=== PATIENT | male | born 2000 | race Caucasian/White ===

== ENCOUNTER 2020-09-14 15:08 | Emergency (ER) | payer OTHER ==
[~2020-09-14] VITALS: Ht 160 cm; Wt 75.7 kg
[2020-09-14 15:43] VITALS: BP 124/70
--- NOTE | 2020-09-14 15:53 | NUR ---
TENT1
--- NOTE | 2020-09-14 15:56 | NUR ---
COVID RAPID, FLU SWABS DONE.
[2020-09-14] MEDS ORDERED: PSEU-250 PO (16:56)
[2020-09-14] MEDS ORDERED: IBUP-1842 PO (16:56)
[2020-09-14 18:50] VITALS: BP 124/70
--- NOTE | 2020-09-14 18:51 | NUR ---
Patient discharged with v/s stable. Written and verbal after care instructions given and explained. Patient alert, oriented and verbalized understanding of instructions. Ambulatory with by caregiver. All questions addressed prior to discharge. ID band removed. Patient advised to follow up with PMD. Rx of ibuprofen, pseudoephedrine given. Patient educated on indication of medication including possible reaction and side effects. Opportunity to ask questions provided and answered.
== END 2020-09-14 18:51 | disposition home or self-care (01) ==
LOC: MED 15:08
DX: J06.9 Acute upper respiratory infection, unspecified (principal); Z20.822 Contact with and (suspected) exposure to COVID-19
CPT/HCPCS: 71045; 87804; 99284

== ENCOUNTER 2021-06-21 02:42 | Inpatient (IN) | payer OTHER ==
[~2021-06-21] VITALS: Ht 160 cm; Wt 80.7 kg
[~2021-06-21 02:42] MED LIST: IBUP-1842 PO; PSEU-250 PO
[2021-06-21 02:50] VITALS: BP 99/69
--- NOTE | 2021-06-21 03:03 | NUR ---
21 Y/O M CAME TO ED WITH C/C OF VOMITING X3 (9PM, 2AM, 3AM), ABDOMINAL PAIN, TOOK PEPTOBISMOL AND DRANK MILK. PT AOX4, ABLE TO LET NEEDS KNOWN. PT AID AT BEDSIDE AT THIS TIME. HX: CEREBRAL PALSY NKA
[2021-06-21] MEDS ORDERED: ONDANSETRON 4 MG/2 ML VIAL IVP ONE (03:30)
[2021-06-21] MEDS ORDERED: MORPHINE SULFATE 4 MG/ML SYR IVP ONE (03:30)
[2021-06-21] MEDS ORDERED: NACL 0.9% 1,000 ML IV ONE ×3 (03:30→05:55)
--- NOTE | 2021-06-21 03:39 | NUR ---
seed laboratory assistant at bedside
--- NOTE | 2021-06-21 03:39 | NUR ---
Yobani almazan in [facility] - 06/21/21 at 0445 by OPAL LAB AT [facility] FOR DRAW
[2021-06-21 03:47] LABS: EOSINOPHILS # (AUTO) 5.6 K/uL (0-0.4); EOSINOPHILS % (AUTO) 47.7 % (0.0-4.0); HEMATOCRIT 47.8 % (36-52); HEMOGLOBIN 16.6 g/dL (12.0-18.0); LYMPHOCYTES % (AUTO) 17.1 % (20.5-51.1); MEAN CORPUSCULAR HEMOGLOBIN 33 pg (27-31); MEAN CORPUSCULAR HGB CONC 35 g/dL (33-37); MEAN CORPUSCULAR VOLUME 95.4 fL (80-94); MONOCYTES # (AUTO) 0.3 K/uL (0.8-1.0); MONOCYTES % (AUTO) 2.9 % (1.7-9.3); NEUTROPHILS # (AUTO) 3.8 K/uL (1.8-7.7); NEUTROPHILS % (AUTO) 32.3 % (42.2-75.2); PLATELET COUNT (AUTO) 119 K/uL (140-450); RED BLOOD CELL COUNT(AUTO) 5.01 MIL/uL (4.20-6.10); RED CELL DISTRIBUTION WIDTH 12.5 % (11.6-13.7); WHITE BLOOD COUNT (AUTO) 11.7 K/uL (4.8-10.8)
[2021-06-21 03:55] LABS: APPEARANCE,URINE CLEAR (CLEAR); BILIRUBIN,URINE NEGATIVE (NEGATIVE); BLOOD, URINE NEGATIVE (NEGATIVE); COLOR,URINE YELLOW (YELLOW); LEUKOCYTE ESTERASE ,URINE NEGATIVE (NEGATIVE); NITRITE, URINE NEGATIVE (NEGATIVE); UGLUCOSE NEGATIVE (NEGATIVE)
[2021-06-21] MEDS: NACL 0.9% 1,000 ML IV SCH ×3 (04:10→12:33)
[2021-06-21 04:14] LABS: ALBUMIN 4.1 g/dL (3.4-5.0); ANION GAP 18.1 (8-16); CARBON DIOXIDE 21.6 mmol/L (21-32); CREATININE 0.9 mg/dL (0.6-1.3); POTASSIUM 3.7 mmol/L (3.5-5.1); TOTAL BILIRUBIN 1.7 mg/dL (0.0-1.0)
--- NOTE | 2021-06-21 04:45 | NUR ---
PT OBSERVED LAYING IN BED. CHEST RISE AND FALL PRESENT. VSS. WILL CONTINUE TO MONITOR.
--- NOTE | 2021-06-21 05:49 | NUR ---
PT TAKEN TO CT WITH PROGRAM ELIGIBILITY SPECIAL[facility]
[2021-06-21] MEDS ORDERED: POTASSIUM CHLORIDE 10 MEQ TABER PO PRN (06:10)
[2021-06-21] MEDS ORDERED: MAG SULF 2000 MG/WATER PREMIX 50 ML IV PRN (06:10)
[2021-06-21] MEDS ORDERED: MAGNESIUM OXIDE 400 MG TAB PO PRN (06:10)
[2021-06-21] MEDS ORDERED: ACETAMINOPHEN 325 MG TAB PO PRN (06:10)
[2021-06-21] MEDS ORDERED: OLAN20TA1 PO (06:25)
[2021-06-21] MEDS ORDERED: TOP100 PO (06:25)
[2021-06-21] MEDS ORDERED: THE (06:25)
[2021-06-21] MEDS ORDERED: FLUV100T31 PO (06:25)
[2021-06-21] MEDS ORDERED: SERT-514 PO (06:25)
[2021-06-21] MEDS ORDERED: DIVA500T1 PO (06:25)
--- NOTE | 2021-06-21 07:15 | NUR ---
REPORT GIVEN TO CARLOS GREEN
--- NOTE | 2021-06-21 07:25 | NUR ---
RECEIVED REPORT FROM CARMELITA GREEN. ASSUMED CARE AT THIS TIME.
[2021-06-21] MEDS: ONDANSETRON 4 MG/2 ML VIAL IVP PRN (08:50)
--- NOTE | 2021-06-21 08:51 | NUR ---
PT C/O NAUSEA AND IS DRY HEAVING. PT MEDICATED PER PRN ORDER
--- NOTE | 2021-06-21 08:55 | NUR ---
Patient will be admitted to care of DR. HIGGINS. Admited to Med/Surg. Will go to room 111B. Belongings list completed. BEDSIDE REPORT GIVEN TO MEAGHAN.
--- NOTE | 2021-06-21 09:05 | NUR ---
GOT RECEIVED REPORT FROM ER NURSE, PATIENT ALERT, HIS LENS INSERTER AT BED SIDE.[id number]
[2021-06-21 12:00] VITALS: BP 104/70
[2021-06-21] MEDS: DOCUSATE SODIUM 100 MG GELCAP PO SCH (12:30)
[2021-06-21 16:00] VITALS: BP 120/77
[2021-06-21] MEDS: HYDROcodone/APAP 5/325 MG 1 TAB TAB PO PRN (17:25)
--- NOTE | 2021-06-21 20:37 | NUR ---
PT'S MOTHER HIT THE CALL LIGHT . PER HER SHE STAYING HERE BECAUSE WAITING WHEN THE SURGERY WILL BE DONE , PER HER SHE TALKED DR. HIGGINS TODAY AND DISCUSSED ABOUT THE SURGERY . I REVIEWED THE DOCTOR ORDERS - NO SURGERY CONSULT ORDER YET - WILL REMIND DR. HIGGINS ABOUT THIS MATTER . PT IS STILL NPO , FEBRILE .
[2021-06-22] VITALS: BP 121/65
--- NOTE | 2021-06-22 02:06 | NUR ---
CONTINUING HICCUPS - O2 SAT 96 % , TEMP RE CHECK 97.7 F ,HR 102 ,BP 121/ 67 - CLOSELY WATCH , NO COMPLAIN OF PAIN , C/O NAUSEA - MEDICATED .
--- NOTE | 2021-06-22 02:19 | NUR ---
ANSWER THE CALL LIGHT - PER PT. HE WANTS PEPTO BISMOL , HE SAID HE HAS HEARTBURN - WILL INFORM DR. ANDREA . Addendum: 06/22/21 at 0457 by Park Jon RN DR Nimco ANDREA NO RESPONSE ABOUT PEPTO BISMOL
[2021-06-22] MEDS: ONDANSETRON 4 MG/2 ML VIAL IVP PRN (03:26)
[2021-06-22] MEDS: NACL 0.9% 1,000 ML IV SCH ×4 (04:10→22:10)
--- NOTE | 2021-06-22 04:50 | NUR ---
C/O ABDL. PAIN - BP 124/76 , WA 112 , O2 SAT 95 % - WILL MEDICATE . CALL LIGHT WITHIN REACH .
[2021-06-22] MEDS: MORPHINE SULFATE 2 MG/ML SYR IVP PRN ×3 (04:52→14:23)
--- NOTE | 2021-06-22 06:00 | NUR ---
ROUNDS , PT'S SAID THE ABL. PAIN IS BIT LESSEN NOW . HE SAID HE HAS NO BM FOR 2 DAYS - WILL ENDORSE .
[2021-06-22 06:52] LABS: HEMATOCRIT 46.1 % (36-52); HEMOGLOBIN 15.7 g/dL (12.0-18.0); LYMPHOCYTES # (AUTO) 0.6 K/uL (2.0-11.5); LYMPHOCYTES % (AUTO) 4.9 % (20.5-51.1); MEAN CORPUSCULAR HEMOGLOBIN 33 pg (27-31); MEAN CORPUSCULAR HGB CONC 34 g/dL (33-37); MEAN CORPUSCULAR VOLUME 96.6 fL (80-94); MONOCYTES # (AUTO) 1.7 K/uL (0.8-1.0); MONOCYTES % (AUTO) 12.9 % (1.7-9.3); NEUTROPHILS # (AUTO) 10.8 K/uL (1.8-7.7); NEUTROPHILS % (AUTO) 82.2 % (42.2-75.2); PLATELET COUNT (AUTO) 120 K/uL (140-450); RED BLOOD CELL COUNT(AUTO) 4.77 MIL/uL (4.20-6.10); RED CELL DISTRIBUTION WIDTH 13.2 % (11.6-13.7); WHITE BLOOD COUNT (AUTO) 13.1 K/uL (4.8-10.8)
[2021-06-22 07:00] LABS: ALBUMIN 2.9 g/dL (3.4-5.0); CARBON DIOXIDE 22.1 mmol/L (21-32); CREATININE 0.7 mg/dL (0.6-1.3); MAGNESIUM 1.9 mg/dL (1.8-2.4); POTASSIUM 3.1 mmol/L (3.5-5.1)
--- NOTE | 2021-06-22 07:23 | NUR ---
ENDORSED - PT - STABLE .
[2021-06-22 08:00] VITALS: BP 125/72
--- NOTE | 2021-06-22 08:09 | NUR ---
RECEIVED PATIENT, AOX3-4, RESIPRATIONS EVEN AND UNLABORED ON ROOM AIR. VITAL SIGNS STABLE. PATIENT REPORTS MILD PAIN BUT TOLERABLE IN HIS ABDOMEN. IV FLUIDS INFUSING. POTASSIUM REPLACEMENT GIVEN, PATIENT ABLE TO SWALLOW WITHOUT DIFFICULTY. REPOSITIONED PATIENT ON SIDE. FAMILY MEMBERS AT BEDSIDE UPDATED ON PLAN OF CARE.
[2021-06-22] MEDS: DOCUSATE SODIUM 100 MG GELCAP PO SCH (08:41)
--- NOTE | 2021-06-22 10:02 | NUR ---
PATIENT'S FATHER ASSISTED PATIENT TO RESTROOM. HE IS UNSTEADY. UNABLE TO HAVE BOWEL MOVEMENT BUT PASSED GAS. URINATING FREELY. REPORTS PAIN IN ABDOMEN, PRN MORPHINE GIVEN. IV FLUIDS INFUSING. WILL CONTINUE TO MONITOR.
--- NOTE | 2021-06-22 11:08 | NUR ---
PATIENT HAS BEEN SCREENED AND CATEGORIZED LOW NUTRITION RISK. PATIENT WILL BE SEEN WITHIN 7 DAYS OF ADMISSION. 06/27/[address]
--- NOTE | 2021-06-22 11:15 | NUR ---
DR BOWDEN AT BEDSIDE, PLAN FOR SURGERY TODAY AT 4PM. PATIENT KEPT NPO. OBTAINED CONSENT FROM MOTHER WHO IS HIS CONSERVATOR.
[2021-06-22] MEDS: KCL 20 MEQ/WATER INJ PREMIX 200 ML IV PRN (12:38)
[2021-06-22] MEDS ORDERED: LIDOCAINE/EPI MPF 1%1:200000 30 ML VIAL INJ ONE (13:15)
[2021-06-22] MEDS ORDERED: BUPIVACAINE-MPF 0.25% 30 ML VIAL INJ ONE (13:16)
--- NOTE | 2021-06-22 13:53 | NUR ---
PATIENT IS RESTING COMFORTABLY IN BED, MOTHER AND GRANDMOTHER AT BEDSIDE. DENIES PAIN AT THIS TIME. ABLE TO VOID IN URINAL 100 CC DARK YELLOW URINE. CHECKED TEMPERATURE 97.7 TEMPORAL. IV POTASSIUM REPLACEMENT INFUSING.
--- NOTE | 2021-06-22 14:38 | NUR ---
PATIENT REPORTS PAIN IN ABDOMEN AND IV SITE FROM POTASSIUM REPLACEMENT. PRN MORPHINE GIVEN. FAMILY AT BEDSIDE.
--- NOTE | 2021-06-22 15:00 | NUR ---
20 MEQ POTASSIUM INFUSED PER DR. BOWDEN'S ORDER. PATIENT LEFT FOR OR BEFORE SECOND BAG COULD BE HUNG. TOTAL POTASSIUM REPLACEMENT TODAY 60 MEQ
--- NOTE | 2021-06-22 15:20 | NUR ---
PATIENT LEFT FOR OR.
[2021-06-22] MEDS ORDERED: ceFAZolin 1,000 MG VIAL ONE (15:46)
[2021-06-22] MEDS ORDERED: SEVOFLURANE 250 ML BTL INH ONE (15:50)
[2021-06-22] MEDS ORDERED: MIDAZOLAM 2 MG/2 ML VIAL ONE (15:53)
[2021-06-22] MEDS ORDERED: HYDROmorphone PFS 2 MG/ML SYR ONE (15:53)
[2021-06-22] MEDS ORDERED: PROPOFOL 200 MG/20 ML VIAL IV ONE (15:54)
[2021-06-22] MEDS ORDERED: DEXAMETHASONE 4 MG/ML VIAL ONE (16:15)
[2021-06-22] MEDS ORDERED: ePHEDrine 50 MG/ML VIAL ONE (16:15)
[2021-06-22] MEDS ORDERED: ONDANSETRON 4 MG/2 ML VIAL ONE (16:15)
[2021-06-22] MEDS ORDERED: ROCURONIUM 50 MG/5 ML VIAL IV ONE (17:47)
[2021-06-22] MEDS ORDERED: HYDROmorphone 1 MG/ML AMP IVP PRN (18:05)
[2021-06-22] MEDS ORDERED: ONDANSETRON 4 MG/2 ML VIAL IVP PRN (18:05)
[2021-06-22] MEDS: LACTATED RINGERS 1,000 ML IV SCH (18:05)
--- NOTE | 2021-06-22 19:10 | NUR ---
RECEIVED BEDSIDE REPORT FROM DAY SHIFT RN FOR CONTINUITY OF CARE. PT IS IN RECOVERY. PT GOT LAP JANES. WAITING FOR PT TO COME BACK.
--- NOTE | 2021-06-22 19:15 | NUR ---
PT IS BACK FROM OR. PT IS STABLE.
[2021-06-22] MEDS: HYDROcodone/APAP 5/325 MG 1 TAB TAB PO PRN (19:58)
[2021-06-23] VITALS: BP 130/79
--- NOTE | 2021-06-23 01:00 | NUR ---
PT COMPLAINED OF ABD PAIN. MORPHINE WAS GIVEN PER MD ORDER. NO OTHER COMPLAINS FROM THE PT. WILL CONTINUE TO MONITOR
[2021-06-23] MEDS: LACTATED RINGERS 1,000 ML IV SCH ×2 (02:25→10:13)
[2021-06-23] MEDS: HYDROcodone/APAP 5/325 MG 1 TAB TAB PO PRN ×3 (02:45→14:30)
--- NOTE | 2021-06-23 03:40 | NUR ---
PT IS SLEEPING IN BED COMFORTABLY. PT IS NOT IN ANY DISTRESS. BREATHING EVEN AND UNLABORED. CALL LIGHT WITHIN REACH. ALL SAFETY MEASURES TAKEN. WILL CONTINUE TO MONITOR THE PT.
[2021-06-23] MEDS: NACL 0.9% 1,000 ML IV SCH ×3 (04:50→18:15)
--- NOTE | 2021-06-23 05:09 | NUR ---
PT WAS CLEANED AND CHANGED. NO COMPLAINS FROM THE PT. ALL SAFETY MEASURES TAKEN. WILL CONTINUE TO MONITOR THE PT.
[2021-06-23] MEDS: MORPHINE SULFATE 2 MG/ML SYR IVP PRN (05:33)
--- NOTE | 2021-06-23 07:23 | NUR ---
ENDORSED PT TO DAY SHIFT RN FOR CONTINUITY OF CARE. PT IS STABLE.
--- NOTE | 2021-06-23 07:23 | NUR ---
ENDORSED PT FROM NIGHTSHIFT NURSE FOR CONTINUITY OF CARE, DISCUSSED PLAN OF CARE. PT VISUALLY ASSESSED AND STABLE. CURRENTLY AWAKE AND ALERT, A/OX4. BREATHING EVEN, REGULAR, AND UNLABORED, ON 3L NASAL CANNULA. PT ON BEDREST, CONTINENT OF THE BOWEL, WITH COX CATHETER PATENT AND HANGING TO GRAVITY. SKIN IS WARM, DRY, DERMABOND ON UMBILICUS HAD VERY LITTLE BLOODY DRAINAGE, 3X DERMABONDS ON ABDOMEN DRY AND INTACT. IV IS CLEAN, DRY, PATENT, RUNNING NS AT 150ML/HR. PT DENIES PAIN AT THIS TIME.
[2021-06-23 07:34] LABS: HEMATOCRIT 40.1 % (36-52); HEMOGLOBIN 13.8 g/dL (12.0-18.0); LYMPHOCYTES # (AUTO) 0.7 K/uL (2.0-11.5); LYMPHOCYTES % (AUTO) 6.3 % (20.5-51.1); MEAN CORPUSCULAR HEMOGLOBIN 33 pg (27-31); MEAN CORPUSCULAR HGB CONC 34 g/dL (33-37); MEAN CORPUSCULAR VOLUME 97.2 fL (80-94); MONOCYTES # (AUTO) 1.3 K/uL (0.8-1.0); MONOCYTES % (AUTO) 12.7 % (1.7-9.3); NEUTROPHILS # (AUTO) 8.6 K/uL (1.8-7.7); PLATELET COUNT (AUTO) 108 K/uL (140-450); RED BLOOD CELL COUNT(AUTO) 4.13 MIL/uL (4.20-6.10); RED CELL DISTRIBUTION WIDTH 12.8 % (11.6-13.7); WHITE BLOOD COUNT (AUTO) 10.6 K/uL (4.8-10.8)
[2021-06-23 07:38] LABS: ALBUMIN 2.7 g/dL (3.4-5.0); ANION GAP 11.2 (8-16); CARBON DIOXIDE 23.3 mmol/L (21-32); CREATININE 0.6 mg/dL (0.6-1.3); POTASSIUM 3.5 mmol/L (3.5-5.1); TOTAL BILIRUBIN 0.7 mg/dL (0.0-1.0)
[2021-06-23 08:00] VITALS: BP 138/84
[2021-06-23] MEDS: DOCUSATE SODIUM 100 MG GELCAP PO SCH (08:39)
--- NOTE | 2021-06-23 09:35 | NUR ---
PT COMPLAINED OF PAIN 8/10 IN HIS ABDOMEN. PRN PAIN MEDICATION GIVEN. FAMILY AT BEDSIDE, PT REQUESTED TO AMBULATE TO BATHROOM TO ATTEMPT BM, AND RELIEVE ABDOMINAL PAIN.. PT WAS ABLE TO AMBULATE WITH 2 PERSON ASSISTANCE.
--- NOTE | 2021-06-23 10:35 | NUR ---
PT VISUALLY ASSESSED. PT STABLE, HR STILL TACHY IN THE 110'S. PAIN REASSESSMENT PERFORMED, PT CURRENTLY SLEEPING, FATHER AND GRANDMOTHER AT THE BEDSIDE. DENIES PAIN AT THIS TIME.
[2021-06-23 12:00] VITALS: BP 139/84
--- NOTE | 2021-06-23 12:45 | NUR ---
PT VISUALLY ASSESSED. PT STABLE, CURRENTLY AWAKE AND ALERT, AND DENIES PAIN AT THIS TIME. INCISIONS WERE CLEAN DRY AND INTACT, WHILE INCISION ON UMBILICUS NO LONGER HAS SANGUINEOUS DRAINAGE, AND HAS DRIED UP. V/S WNL, HOWEVER HR IS STILL HIGH AT 114. WILL CONTINUE TO MONITOR.
--- NOTE | 2021-06-23 13:00 | NUR ---
DC PLANNING PATIENT IS A 21 YRS OLD MALE ADMITTED ON 06/21/2021 TO [facility]/ED FROM [facility] IN [facility](ROOM AND BOARD). PATIENT WAS ADMITTED FOR GALL STONE PANCREATITIS;WITH MILD PELVIS INFLAMMATION. PATIENT HAS A HX OF CEREBRAL PALSY. PATIENT LIVES IN [facility] BOARD FOR ABOUT A YEAR WITH [employer]IA [employer] [facility] AIDE. PATIENT IS CONSERVED AND HIS MOTHER TERESA COTO IS HIS CONSERVATOR (MOTHER HAS LEGAL DOCUMENTS AND MUST PROVIDE TO PLACE ON PATIENT'S CHART. ELMA LITTLE IS PATIENT'S FATHER. SW MET WITH PATIENT AT BEDSIDE TO DISCUSS AND GATHER HIS COLLATERAL INFORMATION PATIENT WAS AWAKE AND ALERT ABLE TO PROVIDE HIS OWN INFORMATION DURING VISIT WITH PATIENT HIS MATERNAL GRANDMOTHER ONEYDA ARRIVED STATING THAT PATIENT'S MOTHER WILL BE COMING LATER TO SEE PATIENT, PATIENT CONTINUE PROVIDING HIS INFORMATION AND STATED THAT HE IS BEEN LIVING IN THE ROOM AND BOARD FOR ABOUT A YEAR. PATIENT STATED THAT HE LIVES WITH OTHER PEOPLE IN THE HOME AND HAS A COUNSELOR (ARIS) AND (JAVIER) THE HOSPITAL AIDE TANIA. HE ALSO STATED THAT HE HAS FAMILY SUPPORT FROM HIS MATERNAL GRANDMOTHER ONEYDA SITTING AT HIS SIDE, MOTHER TERESA WHO IS ALSO HIS CONSERVATOR AND EMERGENCY AND MEDICAL DECISION MAKER AND CONSERVATOR. WELL HIS FATHER ELMA LITTLE. PATIENT STATED THAT HE HAS NO ISSUES GETTING OR TAKING HIS MEDICATIONS, AND THAT HE HAS A WALKER AND A WHEELCHAIR HIS ONLY DME. PATIENT ALSO REPORTED TO GURPREET THAT AFTER HE IS DISCHARGE HE IS NOT GOING TO BE RETURNING BACK TO THE ROOM AND BOARD INSTEAD HE IS GOING TO BE BACK HOME WITH HIS MOTHER TERESA. GURPREET CONFIRMED INFORMATION WITH PATIENT'S GRANDMOTHER AND SHE DID AGREED AND STATED THAT SHE JUST FINISH TALKING TO HER ON THE PHONE IN HER WAY TO THE HOSPITAL AND SHE IS IN AGREEMENT WITH HIS DISCHARGE PLAN. SHE REASSURE THAT PATIENT WILL BE DISCHARGING TO EITHER HIS FATHER OR MOTHER AND HE WILL BE STAYING BACK AT HIS MOTHER DESTINEY HOME AFTER HE IS DC. GURPREET DISCUSSED WITH PATIENT THE IMPORTANCE OF HAVING A FOLLOW UP APPOINTMENT AFTER HIS DC AND HE AGREED. SW WILL FOLLOW UP NEEDED.
--- NOTE | 2021-06-23 14:30 | NUR ---
PT COMPLAINED OF PAIN 6/10 IN ABDOMEN. PRN PAIN MED GIVEN, BP WNL. PT STABLE AND READJUSTED PER REQUEST.
[2021-06-23 16:00] VITALS: BP 147/83
--- NOTE | 2021-06-23 16:02 | NUR ---
DC PLANNIN YRS OLD MALE PATIENT WAS ADMITTED FROM [facility] ([facility]) WITH A DX OF GALL STONE PANCREATITIS. PATIENT HAS A HX OF CEREBRAL PALSY. CT ABD/PELVIS SHOWED MILD INFLAMMATION , US SHOWED CHOLELITHIASIS. ADMINISTERED IVF, IV ABX ROCEPHIN AND PAIN MEDS. DR BOWDEN PERFORMED LAP JANES, TOLERATED WELL. DC PLAN TO GO HOME WHEN STABLE CM TO FOLLOW. Addendum: 06/25/21 at 1419 by Freida Lemus CM DC PLANNING: PATIENT ON POD#3, S/P LAP JANES WITH INTRAOPERATIVE CHOLANGIOGRAM. PATIENTS O2 3-5 LITERS, RECEIVING HHN'S, ABG'S DONE WITH PO2 OF 57.9. CT OF ABD/PELVIS DONE TODAY SHOWS ACUTE PANCREATITIS, POSSIBLE COLITIS, PLEURAL EFFUSION AND POSSIBLE EARLY LLL PNA WITH BILATERAL LL ATELECTASIS. CT ANGIO NEGATIVE FOR PE, STUDIES DONE BECAUSE OF SOB. BNP 220, REMAINS ON ZOSYN AND IVF'S, ZOFRAN IV PRN AND BOWEL REGIMEN. FOLLOWED BY PULMONOLOGY AND SURGERY. CM WILL FOLLOW.
--- NOTE | 2021-06-23 17:00 | NUR ---
PT IS AWAKE AND ALERT. A&OX4. ON 1L O2 NC WITH BREATHING UNLABORED. TAKEN OFF NC WITH OXYGEN AND PLACED ON RA. ON RA THE PT DESATED TO 88%. PLACED BACK ON 1L O2 NC. O2 SAT INCREASED TO 91%. PT IS STABLE. DENIES PAIN.
--- NOTE | 2021-06-23 19:29 | NUR ---
ENDORSED TO NIGHTSHIFT NURSE FOR CONTINUITY OF CARE. DISCUSSED PLAN OF CARE. PT STABLE.
[2021-06-23 20:00] VITALS: BP 146/80
[2021-06-24] VITALS: BP 138/84
[2021-06-24] MEDS: NACL 0.9% 1,000 ML IV SCH ×4 (00:13→20:58)
[2021-06-24] MEDS: MORPHINE SULFATE 2 MG/ML SYR IVP PRN ×2 (00:25→08:32)
[2021-06-24 04:00] VITALS: BP 137/77
[2021-06-24 07:02] LABS: HEMATOCRIT 36.5 % (36-52); HEMOGLOBIN 12.6 g/dL (12.0-18.0); LYMPHOCYTES # (AUTO) 0.9 K/uL (2.0-11.5); LYMPHOCYTES % (AUTO) 9.6 % (20.5-51.1); MEAN CORPUSCULAR HEMOGLOBIN 33 pg (27-31); MEAN CORPUSCULAR HGB CONC 35 g/dL (33-37); MEAN CORPUSCULAR VOLUME 95.9 fL (80-94); MONOCYTES % (AUTO) 10.4 % (1.7-9.3); NEUTROPHILS # (AUTO) 7.4 K/uL (1.8-7.7); PLATELET COUNT (AUTO) 114 K/uL (140-450); RED BLOOD CELL COUNT(AUTO) 3.81 MIL/uL (4.20-6.10); RED CELL DISTRIBUTION WIDTH 12.6 % (11.6-13.7); WHITE BLOOD COUNT (AUTO) 9.2 K/uL (4.8-10.8)
[2021-06-24 07:21] LABS: ALBUMIN 2.4 g/dL (3.4-5.0); ANION GAP 12.5 (8-16); CARBON DIOXIDE 21.8 mmol/L (21-32); CREATININE 0.5 mg/dL (0.6-1.3); MAGNESIUM 1.9 mg/dL (1.8-2.4); POTASSIUM 3.3 mmol/L (3.5-5.1); TOTAL BILIRUBIN 0.8 mg/dL (0.0-1.0)
--- NOTE | 2021-06-24 07:25 | NUR ---
PATIENT WAS SLEEPING WELL AFTER PAIN MEDICATION AND SLEPT WELL. IV SITE ON LEFT FOREARM INTACT AND PATENT, IV FLUID NORMAL SALINE INTACT AND PATENT, RUNNING AT 150ML/HR. ENDORSED TO DAY SHIFT NURSE FOR CONTINUITY OF PATIENT CARE.
[2021-06-24 08:00] VITALS: BP 141/91
[2021-06-24] MEDS: DOCUSATE SODIUM 100 MG GELCAP PO SCH (08:33)
[2021-06-24 12:00] VITALS: BP 147/95
[2021-06-24] MEDS: POLYETHYLENE GLYCOL 17 GM/PKT PO SCH (14:14)
[2021-06-24 16:00] VITALS: BP 146/86
[2021-06-24] MEDS: HYDROcodone/APAP 5/325 MG 1 TAB TAB PO PRN (17:18)
--- NOTE | 2021-06-24 19:25 | NUR ---
RECEIVED ENDORSEMENT FROM NORMA EUBANKS FOR CONTINUITY OF CARE. PATIENT IS AWAKE AND STABLE. A&OX3. PATIENT IS VERBAL. ON 2L VIA NC WITH NO APPARENT S/SX OF ACUTE DISTRESS. RESPIRATIONS EVEN AND UNLABORED. PATIENT'S SKIN IS INTACT. PATIENT'S IV SITE TO THE LFA 20G IS PATENT/INTACT WITH NS INFUSING AT 150 ML/HR. PLAN OF CARE AND WHITE COMMUNICATION BOARD UPDATED. ALL SAFETY MEASURES IN PLACE. BED IN LOW/LOCKED POSITION. CALL LIGHT WITHIN REACH. WILL CONTINUE TO MONITOR.
[2021-06-24] MEDS ORDERED: PIPERACILLIN/TAZOBACTAM 3.375 GM in DEXTROSE 5% 50 ML IV ONE (19:50)
[2021-06-24 20:00] VITALS: BP 135/71
--- NOTE | 2021-06-24 20:00 | NUR ---
REVIEWED PLAN OF CARE WITH SARAHY TRAN LVN. SINCERE
[2021-06-24] MEDS ORDERED: ALBUTEROL SULFATE/IPRATROPIU 3 ML SOL IH ONE (20:05)
--- NOTE | 2021-06-24 20:55 | NUR ---
SPOKE WITH JESSICA TRUCK DRIVING INSTRUCTOR. PER JESSICA, IV SITE MUST BE ESTABLISHED CLOSER TO AC. ENDORSED TO WARD THAT XRAY TEAM IS STILL AT BEDSIDE. WILL ESTABLISH IV LINE SOON TEAM LEAVES BEDSIDE.
--- NOTE | 2021-06-24 21:15 | NUR ---
CHANGED PATIENT'S IVF BAG. TOLERATED WELL. DENIES PAIN. RESPIRATIONS EVEN AND UNLABORED WITH NO APPARENT S/SX OF ACUTE DISTRESS. DISTRICT REPRESENTATIVE AT BEDSIDE. ALL SAFETY MEASURES IN PLACE. CALL LIGHT WITHIN REACH. WILL CONTINUE TO MONITOR.
--- NOTE | 2021-06-24 22:06 | NUR ---
CALLED AND GAVE PATIENT'S ABG RESULTS TO DR. DONNELLY; INFORMED DR. DONNELLY THAT PATIENT WAS ON 3 L/MIN NASAL CANNULA BEFORE ABG WAS TAKEN; INFORMED DR. DONNELLY THAT PATIENT WAS PLACED ON 5 L/MIN NASAL CANNULA WITH BUBBLE HUMIDIFIER POST ABG RESULTS; DR. ANDRZEJ DUCKWORTH'flavio.
[2021-06-24] MEDS: PIPERACILLIN/TAZOBACTAM 3.375 GM in DEXTROSE 5% 50 ML IV SCH (22:58)
--- NOTE | 2021-06-24 23:15 | NUR ---
PATIENT REQUESTED TO BE IN HIGH-FOWLERS POSITION. DENIES PAIN. RESPIRATIONS EVEN AND UNLABORED WITH NO APPARENT S/SX OF ACUTE DISTRESS. WHITE COMMUNICATION BOARD UPDATED. ALL SAFETY MEASURES IN PLACE. CALL LIGHT WITHIN REACH. WILL CONTINUE TO MONITOR.
[2021-06-25] MEDS: HYDROcodone/APAP 5/325 MG 1 TAB TAB PO PRN ×3 (01:05→21:34)
--- NOTE | 2021-06-25 01:10 | NUR ---
ANSWERED CALL LIGHT. PT C/O ABD PAIN 07/16. MEDICATED PER PRN. TOLERATED WELL. RESPIRATIONS EVEN AND UNLABORED WITH NO APPARENT S/SX OF ACUTE DISTRESS. WHITE COMMUNICATION BOARD UPDATED. ALL SAFETY MEASURES IN PLACE. CALL LIGHT WITHIN REACH. WILL CONTINUE TO MONITOR.
[2021-06-25] MEDS: ALBUTEROL SULFATE/IPRATROPIU 3 ML SOL IH SCH ×4 (01:26→19:16)
--- NOTE | 2021-06-25 03:10 | NUR ---
ADMINISTRATED IVF BAG. TOLERATED WELL. PATIENT IS STABLE AND ASLEEP. CHEST IS RISING AND FALLING EVENLY. RESPIRATIONS EVEN AND UNLABORED WITH NO APPARENT S/SX OF ACUTE DISTRESS. WHITE COMMUNICATION BOARD UPDATED. ALL SAFETY MEASURES IN PLACE. CALL LIGHT WITHIN REACH. WILL CONTINUE TO MONITOR.
[2021-06-25] MEDS: NACL 0.9% 1,000 ML IV SCH ×3 (03:55→17:34)
[2021-06-25 04:00] VITALS: BP 126/72
[2021-06-25] MEDS: PIPERACILLIN/TAZOBACTAM 3.375 GM in DEXTROSE 5% 50 ML IV SCH ×3 (05:06→18:10)
--- NOTE | 2021-06-25 05:10 | NUR ---
PER PATIENT REQUEST, HOB ELEVATED TO HIGH FOWLERS. DENIES PAIN. RESPIRATIONS EVEN AND UNLABORED WITH NO APPARENT S/SX OF ACUTE DISTRESS. ALL NEEDS MET. ALL SAFETY MEASURES IN PLACE. CALL LIGHT WITHIN REACH. WILL CONTINUE TO MONITOR.
[2021-06-25] MEDS ORDERED: PIPERACILLIN/TAZOBACTAM 3.375 GM VIAL IV ONE (05:17)
--- NOTE | 2021-06-25 06:32 | NUR ---
CALLED WATCHGUARD DEPARTMENT AND ENDORSED TO GEETHA WATCHGUARD THAT IV LINE FOR IV CONTRAST ESTABLISHED.
[2021-06-25 07:09] LABS: BASOPHILS % (AUTO) 0.2 % (0.0-2.0); HEMATOCRIT 36.9 % (36-52); HEMOGLOBIN 12.7 g/dL (12.0-18.0); LYMPHOCYTES # (AUTO) 1.1 K/uL (2.0-11.5); LYMPHOCYTES % (AUTO) 12.2 % (20.5-51.1); MEAN CORPUSCULAR HEMOGLOBIN 33 pg (27-31); MEAN CORPUSCULAR HGB CONC 34 g/dL (33-37); MEAN CORPUSCULAR VOLUME 95.6 fL (80-94); MONOCYTES # (AUTO) 0.9 K/uL (0.8-1.0); MONOCYTES % (AUTO) 9.9 % (1.7-9.3); NEUTROPHILS # (AUTO) 7.2 K/uL (1.8-7.7); NEUTROPHILS % (AUTO) 77.7 % (42.2-75.2); PLATELET COUNT (AUTO) 121 K/uL (140-450); RED BLOOD CELL COUNT(AUTO) 3.87 MIL/uL (4.20-6.10); RED CELL DISTRIBUTION WIDTH 12.7 % (11.6-13.7); WHITE BLOOD COUNT (AUTO) 9.3 K/uL (4.8-10.8)
[2021-06-25 07:11] LABS: ALBUMIN 2.3 g/dL (3.4-5.0); ANION GAP 11.1 (8-16); CREATININE 0.5 mg/dL (0.6-1.3); MAGNESIUM 2.1 mg/dL (1.8-2.4); POTASSIUM 3.1 mmol/L (3.5-5.1); TOTAL BILIRUBIN 0.9 mg/dL (0.0-1.0)
--- NOTE | 2021-06-25 07:15 | NUR ---
ENDORSED PATIENT TO SHEILA PERRY FOR CONTINUITY OF CARE. PATIENT IS STABLE.
--- NOTE | 2021-06-25 07:16 | NUR ---
RECEIVED REPORT FROM TOUR ESCORT NURSE FOR CONTINUITY OF CARE. PATIENT IS IN BED SLEEPING AT THIS TIME. A&OX3. PATIENT IS VERBAL, ABLE TO MAKE NEEDS KNOWN, ABLE TO FOLLOW COMMANDS. ON 5L VIA NC WITH NO APPARENT S/SX OF ACUTE DISTRESS. RESPIRATIONS EVEN AND UNLABORED. PT HAS HX OF CEREBRAL PALSY WELL DEV. DELAY. PATIENT'S SKIN IS WARM, DRY, AND INTACT. PATIENT HAS IV TO THE LFA 20G IS PATENT/INTACT WITH NS INFUSING AT 150 ML/HR. CALL LIGHT WITHIN REACH. ALL SAFETY MEASURES IN PLACE. BED IN LOW/LOCKED POSITION.WILL CONTINUE TO MONITOR.
[2021-06-25 08:00] VITALS: BP 123/66
[2021-06-25] MEDS ORDERED: KCL 20 MEQ/WATER INJ PREMIX 200 ML IV ONE (08:37)
[2021-06-25] MEDS ORDERED: FUROSEMIDE 40 MG/4 ML VIAL IVP SCH (08:38)
[2021-06-25] MEDS: ENOXAPARIN 40 MG/0.4 ML SYR SUBQ SCH (09:15)
[2021-06-25] MEDS: DOCUSATE SODIUM 100 MG GELCAP PO SCH (09:15)
[2021-06-25] MEDS: POLYETHYLENE GLYCOL 17 GM/PKT PO SCH (09:15)
--- NOTE | 2021-06-25 09:15 | NUR ---
ADMINISTERED ALL SCHEDULED MEDICATIONS. EDUCATED PT REGARDING MEDS ADMINISTERED. PT VERBALIZED UNDERSTANDING. WILL CONTINUE TO MONITOR.
--- NOTE | 2021-06-25 12:19 | NUR ---
ASSISTED WITH CHANGING AND REPOSITIONING PT. PT HAD LARGE BOWEL MOVEMENT. WILL CONTINUE TO MONITOR.
--- NOTE | 2021-06-25 13:15 | NUR ---
SATURATION 97% ON HUMIDIFIED SUPPLEMENTAL OXYGEN AT 4 LPM VIA NC POST HHN THERAPY TITRATED FIO2 TO 3 LPM VICKY/SHEILA NOTIFIED
--- NOTE | 2021-06-25 13:25 | NUR ---
TOLERATED INCENTIVE SPIROMETRY (IS) THERAPY WITHOUT COMPLICATIONS NOTED ENCOURAGED PATIENT TO USE IS EVERY 1-2 HOURS WHILE AWAKE GRANDMOTHER AT BEDSIDE EDUCATION PROVIDED TO PATIENT; GRANDMOTHER TO ASSIST PATIENT WITH IS THERAPY DUE TO THE DECREASE IN UPPER EXTREMITY MOBILITY
--- NOTE | 2021-06-25 15:23 | NUR ---
DID ROUNDS ON PT. PT IN BED RESTING AT THIS TIME. FAMILY AT BEDSIDE. WILL CONTINUE TO MONITOR.
[2021-06-25 16:00] VITALS: BP 126/72
--- NOTE | 2021-06-25 17:34 | NUR ---
PT MOTHER AT BEDSIDE, STATES PT ACCIDENTALLY PULLED OUT IV ON L HAND. IV CATHETER INTACT. PT HAS ANOTHER IV ACCESS TO L UPPER ARM. WILL CONTINUE TO MONITOR.
[2021-06-25] MEDS ORDERED: ALBUTEROL SULFATE/IPRATROPIU 3 ML SOL IH PRN (17:40)
--- NOTE | 2021-06-25 18:02 | NUR ---
CHANGED AND REPOSITIONED PT. PT HAD A LARGE BOWEL MOVEMENT. WILL CONTINUE TO MONITOR.
--- NOTE | 2021-06-25 19:06 | NUR ---
ENDORSED PT TO BRANCH OFFICER NURSE FOR CONTINUITY OF CARE. PT IS STABLE.
--- NOTE | 2021-06-25 19:07 | NUR ---
RECEIVED PATIENT IN BED AWAKE WITH MOTHER AT BEDSIDE. PATIENT IS VERBAL BUT RELUCTANT TO TELL HIS NEEDS FOR PAIN MANAGEMENT BECAUSE OF FEAR FOR ADDICTION. NURSING EDUCATED THAT THE MEDICATION MANAGEMENT IS MODERATE ENOUGH TO CONTROL THE PAIN AND WE WILL GIVE APPROPRIATELY. PATIENT WAS KEPT CLEAN AND DRY AFTER ANOTHER LARGE BOWEL MOVEMENT. NASAL CANULA WAS ON AND ENFORCED WITH TAPE TO ENSURE PATIENT FROM PULLING IT OUT. RESIDENT WAS BREATHING UNLABORED AND EVEN. SIDE RAILS UP X 3 FOR SAFETY. PATIENT CAN ADJUST MODERATELY BUT NEEDS ASSISTANCE. CALL LIGHT WITHIN REACH FOR ASSISTANCE AND NEEDS. [email or web address]
--- NOTE | 2021-06-25 19:08 | NUR ---
Patient's Plan of Care was discussed and reviewed with DEAF TEACHER: KISHA. CALL LIGHT WITHIN REACH. WILL CONTINUE TO MONITOR.
[2021-06-25 20:00] VITALS: BP 138/80
--- NOTE | 2021-06-25 21:35 | NUR ---
PATIENT WAS GIVEN A PAIN PRN FOR MODERATED PAIN TO ABDOMINAL AREA. SURGICAL SITES WERE CLOSED BUT NOTED WITH DRIED SANGUINOUS. TENDER TO TOUCH. NOT WARM. NURSING GAVE MEDICATION AND WILL REASSESS IN ONE HOUR OF EFFECTIVENESS. [email or web address]
--- NOTE | 2021-06-25 22:35 | NUR ---
PATIENT IN BED ASLEEP. NO NOTED FACIAL GRIMACE OR GRUNTING. IV LINE CLEAN AND INTACT. NASAL CANULA ON WITH AIR AT 3 LITERS. BREATHING WITHOUT DISTRESS. [email or web address]
[2021-06-26] MEDS: PIPERACILLIN/TAZOBACTAM 3.375 GM in DEXTROSE 5% 50 ML IV SCH ×5 (00:35→23:53)
[2021-06-26] MEDS: ALBUTEROL SULFATE/IPRATROPIU 3 ML SOL IH SCH ×4 (01:23→18:52)
[2021-06-26] MEDS: MORPHINE SULFATE 2 MG/ML SYR IVP PRN ×2 (01:27→20:48)
--- NOTE | 2021-06-26 01:29 | NUR ---
PATIENT WAS CHANGED WITH ENROLLED AGENT AND INVESTIGATOR INTERNAL AFFAIRS BECAUSE OF URINE. IV NOTED CAME OUT NEW IV WAS STARTED WITH ONE ATTEMPT TO LEFT HAND WITH A 22 LINK. PATIENT TOLERATED IT WELL. SHEEP FARMER RAILS UP X 3 FOR SAFETY. CALL LIGHT IN REACH. KEPT PATIENT CLEAN AND DRY. OXYGEN NOTED ON AND IN PLACE. [email or web address]
[2021-06-26] MEDS: NACL 0.9% 1,000 ML IV SCH ×2 (02:26→06:39)
[2021-06-26 04:00] VITALS: BP 146/92
--- NOTE | 2021-06-26 05:32 | NUR ---
PATIENT HAS HAD TWO BLOODY NOSE. CALLED RT TO ASSIST. COOL COMPRESS WAS APPLIED TO THE BRIDGE OF HIS NOSE TO STOP THE BLEEDING. PATIENT STATES HE IS IN PAIN FOR HIS STOMACH. NURSING WILL GIVE MEDICATION AND DISTRACT FOR PAIN MANAGEMENT. PRN WAS GIVEN PAIN/DISCOMFORT. RT SWITCH PATIENT FROM NASAL CANNULA TO MASK AT THIS TIME. CALL LIGHT WITHIN REACH. [email or web address]
--- NOTE | 2021-06-26 05:40 | NUR ---
DUE TO BLOODY NOSE, SWITCHED PT TO A MASK AT 5L FOR PT COMFORT. NASAL CANNULA IS AT BEDSIDE.
[2021-06-26 07:03] LABS: HEMATOCRIT 37.6 % (36-52); LYMPHOCYTES # (AUTO) 1.4 K/uL (2.0-11.5); LYMPHOCYTES % (AUTO) 13.9 % (20.5-51.1); MEAN CORPUSCULAR HEMOGLOBIN 33 pg (27-31); MEAN CORPUSCULAR HGB CONC 35 g/dL (33-37); MEAN CORPUSCULAR VOLUME 94.9 fL (80-94); MONOCYTES # (AUTO) 1.1 K/uL (0.8-1.0); MONOCYTES % (AUTO) 11.2 % (1.7-9.3); NEUTROPHILS # (AUTO) 7.3 K/uL (1.8-7.7); NEUTROPHILS % (AUTO) 74.9 % (42.2-75.2); PLATELET COUNT (AUTO) 138 K/uL (140-450); RED BLOOD CELL COUNT(AUTO) 3.96 MIL/uL (4.20-6.10); RED CELL DISTRIBUTION WIDTH 12.9 % (11.6-13.7); WHITE BLOOD COUNT (AUTO) 9.7 K/uL (4.8-10.8)
[2021-06-26 07:17] LABS: ALBUMIN 2.3 g/dL (3.4-5.0); ANION GAP 14.4 (8-16); CARBON DIOXIDE 24.6 mmol/L (21-32); CREATININE 0.4 mg/dL (0.6-1.3); MAGNESIUM 1.9 mg/dL (1.8-2.4)
--- NOTE | 2021-06-26 07:22 | NUR ---
ENDORSED TO MEAGHAN GREEN FOR CONTINUITY OF CARE, PATIENT IS STABLE. [email or web address]
--- NOTE | 2021-06-26 07:34 | NUR ---
PT IS RESTING COMFORTABLE IN BED, GOT REPORT FROM THE NIGHT NURSE.[email or web address]
[2021-06-26] MEDS: DOCUSATE SODIUM 100 MG GELCAP PO SCH (08:57)
[2021-06-26] MEDS: POLYETHYLENE GLYCOL 17 GM/PKT PO SCH (08:58)
[2021-06-26] MEDS: ENOXAPARIN 40 MG/0.4 ML SYR SUBQ SCH (09:00)
--- NOTE | 2021-06-26 09:00 | NUR ---
PT CURRENTLY ON 3LNC AND SAT 96% NO. NO DISCOMFORT, CLEAR UPPER LOBES AND DIMINISHED ON THE LOWER LOBES. INSTRUCTED PT ON INCENTIVE SPIROMETRY AND HAD HIM DEMONSTRATE IT BACK TO ME. HIS BEST WAS 850 AT THIS TIME
[2021-06-26 09:58] VITALS: BP 148/88
[2021-06-26] MEDS: KCL 20 MEQ/WATER INJ PREMIX 200 ML IV PRN (11:38)
[2021-06-26] MEDS: HYDROcodone/APAP 5/325 MG 1 TAB TAB PO PRN (11:50)
--- NOTE | 2021-06-26 12:01 | NUR ---
06/26/21 RD INITIAL ASSESSMENT COMPLETED PLEASE REFER TO NUTRITION ASSESSMENT UNDER CARE ACTIVITY FOR ESTIMATED NUTRITIONAL NEEDS. RD RECOMMENDATIONS: 1. CONTINUE CARDIAC DIET TOLERATED. 2. IF PT HAS LOW PO INTAKE, CONSIDER ADDING ENSURE BID. 3. RD WILL F/U 3-5 DAYS; MODERATE RISK OLGA FIGUEROA, RD
--- NOTE | 2021-06-26 12:26 | NUR ---
IV INFILTRATED ON THE LEFT ARM, STARTED NEW IV LINE ON THE RIGHT FORARM WITH 22G, MOTHER AT BEDSIDE,[id number]
--- NOTE | 2021-06-26 13:41 | NUR ---
SATURATION 95% ON SUPPLEMENTAL OXYGEN AT 5 LPM VIA ADULT SIMPLE MASK POST HHN THERAPY CHANGED OXYGEN DEVICE TO A NASAL CANNULA AT 3 LPM WITH HUMIDIFIER MEAGHAN/NORMA NOTIFIED
--- NOTE | 2021-06-26 19:40 | NUR ---
OPENING NOTES: Received report from outgoing nurse. Pt resting in bed, on O2 @3L, nO SIGNS OF RESP DISTRESS NOTED, NOTED iv LINE @RH with 22G, Saline Lock. Noted no fluids at this time as per outgoing nurse.
--- NOTE | 2021-06-26 21:00 | NUR ---
ROUNDS: Pt c/o pain of 7-8/10. Gave 2mg Morphine IVP as per MD order. Well tolerated, no ASE noted. Will cont to monitor.
[2021-06-27] MEDS: ALBUTEROL SULFATE/IPRATROPIU 3 ML SOL IH SCH ×4 (00:53→18:46)
[2021-06-27] MEDS: HYDROcodone/APAP 5/325 MG 1 TAB TAB PO PRN ×2 (01:14→15:09)
[2021-06-27 04:55] VITALS: BP 146/81
[2021-06-27] MEDS: PIPERACILLIN/TAZOBACTAM 3.375 GM in DEXTROSE 5% 50 ML IV SCH ×3 (05:54→18:29)
--- NOTE | 2021-06-27 07:34 | NUR ---
got report from the night nurse, pt awake and mother at bedside.[email or web address]
--- NOTE | 2021-06-27 07:42 | NUR ---
END OF SHIFT REPORT TO INCOMING NURSE. PT ASLEEP IN BED. MOTHER AT BED SIDE. ALL DUE MEDS GIVEN, WELL TOLERATED, NO ASE. NO S/SX OF RESP DIST, PAIN OR DISCOMFORT. ALL COMFORT AND SAFETY MEASURES IN PLACE, BED IN LOW POSITION, LOCKED, CALL LIGHT WITHIN REACH. CONTINUITY OF CARE ENDORSED TO INCOMING RN.
[2021-06-27 08:00] VITALS: BP 111/79
[2021-06-27] MEDS: ENOXAPARIN 40 MG/0.4 ML SYR SUBQ SCH (09:00)
--- NOTE | 2021-06-27 09:00 | NUR ---
MICHELLE KOOTENAI HEALTHYARI C\O PLT IS 130.[email or web address]
[2021-06-27] MEDS: POLYETHYLENE GLYCOL 17 GM/PKT PO SCH (09:04)
[2021-06-27] MEDS: DOCUSATE SODIUM 100 MG GELCAP PO SCH (09:05)
[2021-06-27 13:42] LABS: BASOPHILS % (AUTO) 0.1 % (0.0-2.0); HEMATOCRIT 38.1 % (36-52); HEMOGLOBIN 13.2 g/dL (12.0-18.0); LYMPHOCYTES # (AUTO) 1.2 K/uL (2.0-11.5); LYMPHOCYTES % (AUTO) 16.8 % (20.5-51.1); MEAN CORPUSCULAR HEMOGLOBIN 33 pg (27-31); MEAN CORPUSCULAR HGB CONC 35 g/dL (33-37); MEAN CORPUSCULAR VOLUME 95.6 fL (80-94); MONOCYTES # (AUTO) 0.9 K/uL (0.8-1.0); NEUTROPHILS # (AUTO) 5.1 K/uL (1.8-7.7); NEUTROPHILS % (AUTO) 70.1 % (42.2-75.2); PLATELET COUNT (AUTO) 130 K/uL (140-450); RED BLOOD CELL COUNT(AUTO) 3.99 MIL/uL (4.20-6.10); RED CELL DISTRIBUTION WIDTH 12.9 % (11.6-13.7); WHITE BLOOD COUNT (AUTO) 7.3 K/uL (4.8-10.8)
[2021-06-27 14:03] LABS: ALBUMIN 2.4 g/dL (3.4-5.0); ANION GAP 11.1 (8-16); CARBON DIOXIDE 29.4 mmol/L (21-32); CREATININE 0.5 mg/dL (0.6-1.3); POTASSIUM 3.5 mmol/L (3.5-5.1); TOTAL BILIRUBIN 1.1 mg/dL (0.0-1.0)
--- NOTE | 2021-06-27 19:00 | NUR ---
PT ON 3L NASAL CANNULA SATURATION IS 98%. EQUAL CHEST RISE AND CLEAR BREATH SOUNDS. DIMINISHED ON THE BASES. PT WAS RESTING COMFORTABLY.
[2021-06-27 20:00] VITALS: BP 118/76
--- NOTE | 2021-06-27 20:25 | NUR ---
FULLY WET DIAPER . WILL CLEAN UP , O2 SAT 96 % , NO COMPLAIN MADE AT THIS TIME , CALL LIGHT WITHIN REACH . WILL CONT. TO MONITOR .
--- NOTE | 2021-06-27 22:24 | NUR ---
SLEEPING , O2 SAT 96 % - ON O2 SAT . MONITORING , CALL LIGHT WITHIN REACH .WILL CONT. TO MONITOR .
[2021-06-28] MEDS: PIPERACILLIN/TAZOBACTAM 3.375 GM in DEXTROSE 5% 50 ML IV SCH ×5 (00:45→23:25)
[2021-06-28] MEDS: ALBUTEROL SULFATE/IPRATROPIU 3 ML SOL IH SCH ×5 (00:57→23:25)
--- NOTE | 2021-06-28 01:00 | NUR ---
AWAKE - NO COMPLAIN MADE , CALL LIGHT WITHIN REACH .
[2021-06-28 04:00] VITALS: BP 113/70
--- NOTE | 2021-06-28 04:00 | NUR ---
ROUNDS , NO S/SX OF ACUTE DISTRESS NOTED . CALL LIGHT WITHIN REACH .
--- NOTE | 2021-06-28 06:00 | NUR ---
ROUNDS , AWAKEABLE , NO S/SX OF ACUTE DISTRESS NOTED , CALL LIGHT WITHIN REACH ,.
--- NOTE | 2021-06-28 07:30 | NUR ---
RECEIVED BEDSIDE REPORT FROM GOLD MINER BLASTING NURSE FOR CONTINUITY OF CARE. PT IS AWAKE AND ALERT. A&OX3. ON 2L O2 NC WITH BREATHING UNLABORED. BEDBOUND. INCONTINENT OF THE BOWEL AND BLADDER. SKIN IS WARM AND DRY. 4 SURGICAL INCISIONS WITH DANIELLA KELLY. IV IS IN THE RIGHT HAND 22 GAUGE TKO. PT IS STABLE. PLAN OF CARE DISCUSSED.
--- NOTE | 2021-06-28 07:40 | NUR ---
ENDORSED - PT - STABLE .
[2021-06-28 08:00] VITALS: BP 120/68
--- NOTE | 2021-06-28 09:30 | NUR ---
PT VOIDED AND HAD A BM IN DIAPER. PT WAS CHANGED AND NEW DIAPER PLACED. PT WAS ALSO GIVEN BED BATH. TOLERATED MOVEMENT WELL AND ASSISTED. ON 2L O2 NC WITH BREATHING UNLABORED. ATTEMPTED TO TAKE OFF NC AND PLACE ON RA. ON RA HE DESATED TO 88%. PLACED BACK ON 2L O2 NC AND O2 SAT WENT BACK UP TO 92%. ENCOURAGED INCENTIVE SPIROMETER USE EVERY HOUR AND PT VERBALIZED UNDERSTANDING.
[2021-06-28] MEDS: DOCUSATE SODIUM 100 MG GELCAP PO SCH (09:40)
[2021-06-28] MEDS: POLYETHYLENE GLYCOL 17 GM/PKT PO SCH (09:40)
[2021-06-28] MEDS: ENOXAPARIN 40 MG/0.4 ML SYR SUBQ SCH (09:42)
--- NOTE | 2021-06-28 11:30 | NUR ---
PT IS SLEEPING. CHEST RISE AND FALL SYMMETRICAL. NO DISTRESS NOTED AT THIS TIME. IV IS PATENT AND INFUSING TKO. WILL CONTINUE TO MONITOR.
--- NOTE | 2021-06-28 12:43 | NUR ---
WOUND CARE EVALUATION NOTES: REASON FOR EVALUATION: ABDOMINAL SURGICAL WOUND. WOUND ASSESSMENT COMPLETED ON THIS 21 Y/O MALE ADMITTED TO [facility] FOR [place] PANCREATITIS. PATIENT IS FROM HOME. PAST MEDICAL HISTORY INCLUDES CEREBRAL PALSY. ALL ABOVE INFORMATION WAS OBTAINED FROM THE ADMISSION H&P. LABS ARE WBC 7.3, H/H 13.2/38.1, GLUCOSE 105, ALBUMIN 2.4. PATIENT IS AAOX3, VERBAL, BEDBOUND, REQUIRES ASSISTANCE FOR TRANSFERS. ORAL MUCOSAL MEMBRANES MOIST. REQUIRES ASSISTANCE WITH TURNING. PLAN OF CARE AND PRESSURE PREVENTATIVE MEASURES DISCUSSED WITH PATIENT AND PRIMARY RN. PATIENT VERBALIZED UNDERSTANDING. COMORBIDITIES RELATED TO FURTHER SKIN BREAKDOWN SUCH IMPAIRED OR DECREASED MOBILITY, AND LOW ALBUMIN LEVEL. INTEGUMENTARY: - S/P LAP JANES ON 06/22/21. 4 ABDOMINAL SURGICAL WOUNDS WITH DERMABOND GLUE, NO DRAINAGE. PERIWOUND INTACT. RECOMMENDATIONS: - CLEANSE SURGICAL SITES WITH NS, PAT DRY, AND LEAVE DANIELLA DAILY AND PRN IF SOILED. - TURN AND REPOSITION PATIENT Q2H TO LEFT AND RIGHT SIDE TO OFFLOAD SACRALCOCCYX. - ASSESS AND MONITOR SKIN CONDITION DURING POSITION CHANGE. PLEASE PAY ATTENTION TO SACRALCOCCYX AND HEELS. - KEEP SKIN DRY AND CLEAN AT ALL TIMES. - RD CONSULT RECOMMENDATIONS DISCUSSED WITH PRIMARY RN. WILL FOLLOW-UP PATIENT Q7-10 DAYS AND PRN. PLEASE CONTACT WOUND CARE NURSE FOR ANY CONCERNS AND CHANGES IN WOUND CONDITION.
--- NOTE | 2021-06-28 13:10 | NUR ---
ROUNDED ON PT. HE IS STILL ASLEEP. PT RESTING COMFORTABLY. NO DISTRESS NOTED. VISITORS NO LONGER AT BEDSIDE. PT IS STABLE.
--- NOTE | 2021-06-28 14:09 | NUR ---
RECEIVED ORDERS FROM DR. MURPHY TO RENEW THE NORCO AND MORPHINE ORDER.
--- NOTE | 2021-06-28 14:19 | NUR ---
DC PLANNING: JESSICA SPOKE WITH THE PATIENT AND HIS MOTHER AT BEDSIDE. THE PATIENT HAS BEEN AT [facility] FOR A YEAR BUT PRIOR TO THAT LIVED AT HOME WITH HIS FAMILY. HE IS ABLE TO AMBULATE USING A FWW AND HAS OTHER DME AT HOME OF A WC, AND SHOWER CHAIR. THE PATIENTS MOTHER IS HIS CONSERVATOR, TERESA ARNETT, CELL NUMBER [phone]. HE WILL [place] [address], [id number]. HE WILL LIVE WITH HIS MOTHER, STEP-FATHER, GRANDMOTHER AND SISTER. HE WILL GO BACK TO [facility] ONCE HE IS PHYSICALLY READY AND OPTIMIZED UNTIL PAPERWORK IS COMPLETED FOR HIM TO RETURN HOME PERMANENTLY. HE HAS A [employer] WORKER, ENRRIQUE ROBERTS WHO ASSISTS WITH SERVICES AND APPOINTMENTS. THE FAMILY WILL BE ABLE TO TRANSPORT HIM HOME, MOTHER IS ASKING FOR HOME HEALTH P.T. WHICH WILL BE ARRANGED THROUGH [facility]. THE PATIENT REMAINS ON O2 AT 3 L, PER DR CHAVEZ HE HAS BILATERAL CONSOLIDATION IN THE LUNG BASES. THE PATIENT CURRENTLY HAS NOT HAD AN APPETITE AND WAS NOT ABLE TO EAT LUNCH. HE CONTINUES WITH INCENTIVE SPIROMETER USE AND IS DE-SATTING TO THE HIGH 80S. JESSICA ALSO DISCUSSED HOME O2, ENDORSED THAT THIS WILL BE SET UP IF NEEDED. PER DR MURPHY THE GI MD MIGHT DO AN ERCP. THE PATIENT WILL BE TRANSPORTED HOME BY FAMILY WHEN STABLE FOR DISCHARGE, JESSICA WILL FOLLOW. Addendum: 06/30/21 at 1244 by Freida Lemus CM DC PLANNING: PATIENT NOW ON RA, GI RECOMMENDS OP F/U FOR ELEVATED LFT'S. JESSICA SPOKE WITH KRYSTIAN AT [facility] REGARDING HOME HEALTH CHOICES IN [place], GIVEN [facility] AND [facility]. CM SPOKE WITH SEDRICK AT [facility] ([phone]), STATES THEY SERVICE [place]. CM SENT OVER REFERRAL FOR REVIEW, WILL SPEAK WITH KRYSTIAN AT [facility] FOR AUTH ONCE HOME HEALTH ACCEPTS. CM WILL FOLLOW. Addendum: 06/30/21 at 1348 by Freida Lemus CM DC PLANNING: [facility] DECLINED, PATIENT HAS BEEN ON SERVICE WITH [facility] IN THE PAST, CM SPOKE WITH THEM AND THEY WILL PROBABLY BE ABLE TO ACCOMMODATE. REFERRAL FAXED TO THEM, [facility] AUTH ALSO GIVEN TO THEM. THEIR PHONE NUMBER IS [phone]. CM WILL FOLLOW.
[2021-06-28 16:00] VITALS: BP 138/80
--- NOTE | 2021-06-28 16:00 | NUR ---
PT VISUALLY ASSESSED. PT STABLE, DENIES PAIN AT THIS TIME. FAMILY AT BEDSIDE.
--- NOTE | 2021-06-28 18:03 | NUR ---
P.T. NOTES P.T. EVAL COMPLETED; REFER TO EVAL FOR DETAILS.
--- NOTE | 2021-06-28 18:20 | NUR ---
PT WAS VISUALLY ASSESSED. PT STABLE AND DENIES PAIN AT THIS TIME. FAMILY AT THE BEDSIDE WERE REQUESTING BUTTONER FOR LINEN CHANGE AND BED BATH. BUTTONER INFORMED.
--- NOTE | 2021-06-28 19:33 | NUR ---
ENDORSED PT TO CALL CENTER TRAINER NURSE FOR CONTINUITY OF CARE. PT IS STABLE. PLAN OF CARE DISCUSSED.
--- NOTE | 2021-06-28 19:44 | NUR ---
RECEIVED REPORT FROM OUTGOING NURSE. PT LYING IN BED, FACIAL EXPRESSIONS CALM AND RELAXED. NO S/SX OF PAIN, DISCOMFORT OR RESP DISTRESS. FAMILY AT BEDSIDE. IV FLUIDS NS RUNNING AT 10/HR TKO. ASSISTED WITH DANIEL CARE, TURNING AND REPOSITIONING. WILL CONT TO MONITOR.
--- NOTE | 2021-06-29 03:40 | NUR ---
NOTED PIV LINE SWOLLEN AND INFILTRATED. AFTER SEVERAL ATTEMPTS, NEW IV LINE STARTED @ LFA WITH 24G, SALINE LOCK. TOLERATED WELL, PT RESTING IN BED. WILL CONT. TO MONITOR.
[2021-06-29] MEDS: PIPERACILLIN/TAZOBACTAM 3.375 GM in DEXTROSE 5% 50 ML IV SCH ×4 (06:13→23:53)
[2021-06-29 06:32] VITALS: BP 127/69
--- NOTE | 2021-06-29 07:15 | NUR ---
RECEIVED REPORT FROM DEPUTY OF COUNTER INTELLIGENCE NURSE FOR CONTINUITY OF CARE. PATIENT ASLEEP WITH O2 AT 2L/MIN VIA NASAL CANULA. RESPIRATION EVEN AND NOT LABORED NO SHORTNESS OF BREATH. IV SITE ON LEFT FORE ARM LINK 24 SALINE LOCK.ALL SAFETY MEASURE IN PLACE.
--- NOTE | 2021-06-29 07:40 | NUR ---
END OF SHIFT REPORT GIVEN TO AM NURSE. PT SLEEPING IN BED, NEW IV LINE STARTED @LFA RUNNING WITH ABX. PT STABLE AT THIS TIME. SAFETY AND COMFORT MEASURES IN PLACE. CONTINUITY OF CARE ENDORSED TO AM NURSE.
[2021-06-29] MEDS: ALBUTEROL SULFATE/IPRATROPIU 3 ML SOL IH SCH ×3 (07:47→19:27)
--- NOTE | 2021-06-29 08:00 | NUR ---
Patient's Plan of Care was discussed and reviewed with AVIONICS SHOP SUPERVISOR: TANISHA WILLAMS
[2021-06-29] MEDS: ENOXAPARIN 40 MG/0.4 ML SYR SUBQ SCH (09:30)
[2021-06-29] MEDS: DOCUSATE SODIUM 100 MG GELCAP PO SCH (09:34)
[2021-06-29] MEDS: POLYETHYLENE GLYCOL 17 GM/PKT PO SCH (09:34)
--- NOTE | 2021-06-29 09:48 | NUR ---
GIVEN ALL DUE MEDICATION AND ASSISTED WITH HIS BREAKFAST. PATIENT ALERT ABLE TO MAKE NEEDS KNOWN. RESPIRATION EVEN AND NOT LABORED NO SHORTNESS OF BREATH. ON O2 AT 2L/MIN VIA NASAL CANULA o2 SAT AT 97%. ALL SAFETY MEASURE IN PLACE.
--- NOTE | 2021-06-29 10:30 | NUR ---
PATIENT MOTHER AT BED SIDE. ASK FOR UPDATE REGARDING PATIENT CONDITION.
--- NOTE | 2021-06-29 10:55 | NUR ---
PATIENT GIVEN SPONGE BATH, CLEANSE AND DRESSED ASSISTED WITH BUSH HOG OPERATOR.
--- NOTE | 2021-06-29 13:51 | NUR ---
DR. PADRON DISABILITY REPRESENTATIVE SEEN PATIENT.
--- NOTE | 2021-06-29 14:30 | NUR ---
SEEN BY DR. GRACIA.
--- NOTE | 2021-06-29 15:03 | NUR ---
DR. MURPHY AT BED SIDE TALKING TO PATIENT MOTHER.
--- NOTE | 2021-06-29 15:26 | NUR ---
PT DID THERAPY WITH PATIENT AMBULATE WITH FWW TOLERATED WELL. O2 SAT AT 95% AT ROOM AIR. CHANGE DIAPER AND OFFERED APPLE JUICE AND JELLO SINCE PATIENT REFUSED TO EAT HIS LUNCH. ALL SAFETY MEASURE IN PLACE.
[2021-06-29 16:00] VITALS: BP 127/72
--- NOTE | 2021-06-29 16:25 | NUR ---
PHYSICAL THERAPY CO-SIGN The Physical Therapy Progress Notes documented by Folder Machine Operator have been reviewed. Reviewed/Co-Signed by: Deisi Lan Documentation Done by: HELADIO WINTERS PTA Addendum: 06/29/21 at 1626 by Deisi Lan PT Amended: Links added.
--- NOTE | 2021-06-29 16:43 | NUR ---
PATIENT HAD B[facility]EL [facility]EMENT [facility] REPRESENTATIVE CHANGE PATIENT.
--- NOTE | 2021-06-29 18:20 | NUR ---
ASSISTED PATIENT WITH MEAL ATE MASH POTATOES AND MEATLOAF, JUICE AND MILK. FATHER AT BED SIDE. NO ADVERSE REACTION ON IV ANTIBIOTIC OF ZOSYN. DENIES PAIN ON ROOM AIR O2 SAT AT 94 TO 95%. CALL LIGHT WITH IN EASY REACH.
--- NOTE | 2021-06-29 19:36 | NUR ---
Gave report to welder 2nd shift nurse for continuity of care.
--- NOTE | 2021-06-29 19:46 | NUR ---
GET THE REPORT FROM MORNING NURSE TANISHA , PATIENT IS ALERT ORIENTED X 3 , CALL LIGHT IS WITHIN THE REACH ,WILL CONTINUE TO MONITOR PATIENT.
[2021-06-29 20:00] VITALS: BP 128/65
--- NOTE | 2021-06-29 20:00 | NUR ---
PATIENT IS LYING ON BED, PATIENT IS ALERT AND ORIENTED X 3 , VITAL SIGN IS WITHIN THE NORMAL RANGE, NO ANY COMPLAIN OF PAIN OR SHORTNESS OF BREATH AT THIS TIME, CALL LIGHT IS WITHIN THE REACH ,WILL CONTINUE TO MONITOR PATIENT.
--- NOTE | 2021-06-30 | NUR ---
PATIENT IS LYING ON BED , ALL SCHEDULE MEDICATION IS GIVEN PER DOCTOR ORDER, NO ANY COMPLAIN OF PAIN AT THIS TIME ,CALL LIGHT IS WITHIN THE REACH, WILL CONTINUE TO MONITOR PATIENT.
[2021-06-30] MEDS: ALBUTEROL SULFATE/IPRATROPIU 3 ML SOL IH SCH ×3 (01:39→13:56)
--- NOTE | 2021-06-30 02:47 | NUR ---
PATIENT IS LYING ON BED, NO ANY COMPLAIN OF PAIN AT THIS TIME, CALL LIGHT IS WITHIN THE REACH ,WILL CONTINUE TO MONITOR PATIENT
[2021-06-30 04:00] VITALS: BP 119/68
--- NOTE | 2021-06-30 04:45 | NUR ---
PATIENT IS LYING ON BED, NO ANY COMPLAIN OF PAIN OR SHORTNESS OF BREATH AT THIS TIME, VITAL SIGN IS WITHIN THE NORMAL RANGE, CALL LIGHT IS WITHIN THE REACH ,WILL CONTINUE TO MONITOR PATIENT.
[2021-06-30] MEDS: PIPERACILLIN/TAZOBACTAM 3.375 GM in DEXTROSE 5% 50 ML IV SCH (05:21)
--- NOTE | 2021-06-30 05:21 | NUR ---
ALL SCHEDULE MEDICATION IS GIVEN PER DOCTOR ORDER, CALL LIGHT IS WITHIN THE REACH, WILL CONTINUE TO MONITOR PATIENT.
--- NOTE | 2021-06-30 06:31 | NUR ---
NEW IV INSERTED ON LEFT HAND 20 GAUGE, IV IS INTACT AND PATENT ,CALL LIGHT IS WITHIN THE REACH, WILL CONTINUE TO MONITOR PATIENT
--- NOTE | 2021-06-30 07:06 | NUR ---
GAVE REPORT TO MORNING NURSE TANISHA FOR CONTINUOS OF ACRE, PATIENT IS STABLE.
--- NOTE | 2021-06-30 07:18 | NUR ---
RECEIVED REPORT FROM CANE FLUME WATCHER NURSE FOR CONTINUITY OF CARE. PATIENT ASLEEP NO DISTRESS NOTE. IV SITE ON LEFT HAND LINK 20. NO SIGN AND SYMPTOMS OF INFECTION OR INFILTRATE. ALL SAFETY MEASURE IN PLACE. PATIENT ON ROOM AIR. RESPIRATION EVEN AND NOT LABORED.
[2021-06-30] MEDS: POLYETHYLENE GLYCOL 17 GM/PKT PO SCH (09:00)
[2021-06-30] MEDS: DOCUSATE SODIUM 100 MG GELCAP PO SCH (09:00)
[2021-06-30] MEDS: ENOXAPARIN 40 MG/0.4 ML SYR SUBQ SCH (09:39)
--- NOTE | 2021-06-30 09:40 | NUR ---
GIVEN LOVENOX AND HOLD DSS AND POLYETHYLENE DUE TO LOOSE STOOL YESTERDAY. PATIENT ON STABLE CONDITION NO PAIN NOTED. RESPIRATION EVEN AND NOT LABORED NO SHORTNESS OF BREATH. ON ROOM AIR.
--- NOTE | 2021-06-30 10:05 | NUR ---
PHYSICAL THERAPY CO-SIGN The Physical Therapy Progress Notes documented by Nutrition Specialist have been reviewed. Reviewed/Co-Signed by: Deisi Lan Documentation Done by: HELADIO WINTERS PTA Addendum: 06/30/21 at 1005 by Deisi Lan PT Amended: Links added.
--- NOTE | 2021-06-30 12:00 | NUR ---
PATIENT ON BED RESTING NO DISTRESS NOTED. SEEN BY DR. NEWBY ORDER TO DISCONTINUE ZOSYN AND WITH LAB ORDER FOR HEPATIC PANEL.
--- NOTE | 2021-06-30 12:30 | NUR ---
PATIENT OFFERED LUNCH BUT REFUSED STATED I'M NOT HUNGRY I WANT TO GO HOME.
[2021-06-30 13:01] LABS: ALBUMIN 2.6 g/dL (3.4-5.0); BILIRUBIN,DIRECT 0.2 mg/dL (0.0-0.3); TOTAL BILIRUBIN 0.5 mg/dL (0.0-1.0)
--- NOTE | 2021-06-30 14:30 | NUR ---
PATIENT AT HIS BED RESTING WITH MOTHER AND GRAND MOTHER AT BED SIDE. DR. MURPHY SEEN PATIENT AND INFORM THE PATIENT CONDITION AND DISCHARGE PLAN.
[2021-06-30 15:19] VITALS: BP 115/70
--- NOTE | 2021-06-30 15:55 | NUR ---
PATIENT ALERT AND ON STABLE CONDITION. NO DISCOMFORT OR PAIN. DISCHARGE PACKET GIVEN TO MOTHER WITH INSTRUCTION VERBALIZED UNDERSTANDING. REMOVED IV WITH CATHETER INTACT AND NAME BAND REMOVED. ALL BELONGING TAKEN . WHEELED PATIENT TO THEIR PRIVATE VEHICLE.
[2021-07-01 12:08] LABS: HEPATITIS A ANTIBODY IGM Negative (Negative); HEPATITIS B CORE AB TOTAL Negative (Negative); HEPATITIS B SURFACE ANTIBODY Non Reactive (.); HEPATITIS B SURFACE ANTIGEN Negative (Negative)
== END 2021-06-30 15:55 | disposition home health service (06) | DRG 263 ==
LOC: MED 02:42 → MMU 06:13 → MTU 08:53
PROVIDERS: ADMIT Hospitalist; ATTEND Hospitalist
PROC: BF101ZZ Fluoroscopy of Bile Ducts using Low Osmolar Contrast (ICD-10-PCS; 2021-06-22)
PROC: 0FT44ZZ Resection of Gallbladder, Percutaneous Endoscopic Approach (ICD-10-PCS; principal; 2021-06-22 15:30)
DX: K85.10 Biliary acute pancreatitis without necrosis or infection (principal); J96.01 Acute respiratory failure with hypoxia; J69.0 Pneumonitis due to inhalation of food and vomit; R65.11 Systemic inflammatory response syndrome (SIRS) of non-infectious origin with acute organ dysfunction; K80.00 Calculus of gallbladder with acute cholecystitis without obstruction; E83.51 Hypocalcemia; E80.6 Other disorders of bilirubin metabolism; G40.909 Epilepsy, unspecified, not intractable, without status epilepticus; G80.9 Cerebral palsy, unspecified; R74.01 Elevation of levels of liver transaminase levels; E87.70 Fluid overload, unspecified; Z20.822 Contact with and (suspected) exposure to COVID-19
CPT/HCPCS: 36415; 36600; 71045; 71275; 74018; 76700; 80053; 80076; 81003; 82374; 82803; 83690; 83735; 83880; 85025; 86704; 86706; 86708; 86709; 86803; 86886; 86900; 86901; 87081; 87340; 88304; 93970; 94010; 94640; 94667; 96361; 96374; 96375; 97112; 97116; 97163-GP; 97530; 99285; C1887; J0690; J0696; J1100; J1170; J1650; J1940; J2001; J2250; J2270; J2405; J2543; J2704; J3480; J3490; J7030; J7060; Q0092; Q9967